=== PATIENT | female | born 2000 | race Two or more races ===

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

== ENCOUNTER 2023-06-06 16:19 | Emergency (ER) | payer OTHER ==
[2023-06-06 16:27] VITALS: BP 101/71; PULSE 75; RESP 18; TEMP 98.1; BMI 37.0
[2023-06-06 18:44] LABS: HCG,QUALITATIVE URINE Positive
[2023-06-06 18:45] LABS: PH,URINE 5.5 (5.0-8.0); URINE APPEARANCE CLEAR; URINE BILIRUBIN NEGATIVE (NEGATIVE); URINE COLOR YELLOW; URINE GLUCOSE (UA) NEGATIVE (NEGATIVE); URINE KETONE NEGATIVE (NEGATIVE); URINE LEUK ESTERASE NEGATIVE (NEGATIVE); URINE NITRITE NEGATIVE (NEGATIVE); URINE PROTEIN NEGATIVE (NEGATIVE)
== END 2023-06-06 19:15 | disposition home or self-care (01) ==
LOC: JER 16:19
DX: O26.892 Other specified pregnancy related conditions, second trimester (principal); R10.30 Lower abdominal pain, unspecified; M54.9 Dorsalgia, unspecified; Z3A.18 18 weeks gestation of pregnancy; Z00.00 Encounter for general adult medical examination without abnormal findings
CPT/HCPCS: 76801-TC; 81003; 84703; 87086; 99284-25

== ENCOUNTER 2023-06-08 13:36 | Emergency (ER) | payer OTHER ==
[2023-06-08 13:52] VITALS: BP 100/60; PULSE 90; RESP 18; TEMP 99; BMI 36.3
== END 2023-06-08 18:27 | disposition home or self-care (01) ==
LOC: JER 13:36
DX: O26.892 Other specified pregnancy related conditions, second trimester (principal); R10.9 Unspecified abdominal pain; O35.9XX0 Maternal care for (suspected) fetal abnormality and damage, unspecified, not applicable or unspecified; Z3A.19 19 weeks gestation of pregnancy
CPT/HCPCS: 99282-25